=== PATIENT | female | born 2000 | race Caucasian/White ===

== ENCOUNTER 2018-07-01 02:13 | Emergency (ER) | payer SELFPAY ==
[2018-07-01] MEDS ORDERED: Metoclopramide IV* 5 MG/ML 2 ML VIAL IV SLOW PU ONE (02:14)
[2018-07-01] MEDS ORDERED: NS 0.9% 1000 ML* 1,000 ML IV ONE (02:14)
--- NOTE | 2018-07-01 02:27 | ED ---
Substance Abuse/Use - HPI Summary HPI Summary: Pt is a 18 y/o female BIBA who presents to the ED c/o alcohol intoxication. She drank beer tonight, which she claims she doesnt do very often. She was walking on [address] with her friends and was too intoxicated to walk. Pt vomited several times and had slightly low BP, as per EMS. Pt is a level 5 caveat due to her AMS, therefore a proper history was not able to be obtained. - History Of Current Complaint Stated Complaint: ETOH Time Seen by Provider: 07/01/18 02:14 Hx Obtained From: Patient, EMS Hx From Patient Unobtainable Due To: Altered Mental Status Ingestion History: Type/Name Of Drug - Alcohol Character: Lethargic Associated Signs And Symptoms: Nausea, Vomiting - Allergies/Home Medications Allergies/Adverse Reactions: Allergies Allergy/AdvReac Type Severity Reaction Status Date / Time No Known Allergies Allergy Verified 07/01/18 02:23 Home Medications: Home Medications NK [No Home Medications Reported] 07/01/18 [History Confirmed 07/01/18] PMH/Surg Hx/FS Hx/Imm Hx Infectious Disease History: No Infectious Disease History: Denies: Traveled Outside the [place] in Last 30 Days - Family History Known Family History: Positive: Unknown - Level 5 caveat due to AMS - Social History Alcohol Use: Occasionally Hx Substance Use: No Substance Use Type: Reports: None Hx Tobacco Use: No Smoking Status (MU): Never Smoked Tobacco Review of Systems Positive: Vomiting, Nausea Positive: Other - Intoxicated All Other Systems Reviewed And Are Negative: Yes Physical Exam - Summary Physical Exam Summary: VITAL SIGNS: Reviewed. GENERAL: Patient is a well-developed and nourished FEMALE who is vomiting. Patient is not in any acute respiratory distress. HEAD AND FACE: No signs of trauma. No ecchymosis, hematomas or skull depressions. No sinus tenderness. EYES: PERRLA, EOMI x 2, No injected conjunctiva, no nystagmus. EARS: Hearing grossly intact. Ear canals and tympanic membranes are within normal limits. MOUTH: Oropharynx within normal limits. NECK: Supple, trachea is midline, no adenopathy, no JVD, no carotid bruit, no c- spine tenderness, neck with full ROM. CHEST: Symmetric, no tenderness at palpation LUNGS: Clear to auscultation bilaterally. No wheezing or crackles. CVS: Regular rate and rhythm, S1 and S2 present, no murmurs or gallops appreciated. ABDOMEN: Soft, non-tender. No signs of distention. No rebound no guarding, and no masses palpated. Bowel sounds are normal. EXTREMITIES: FROM in all major joints, no edema, no cyanosis or clubbing. NEURO: Alert and oriented x 3. No acute neurological deficits. Speech is normal and follows commands. Slowly responds to questions. SKIN: Dry and warm Triage Information Reviewed: Yes Vital Signs On Initial Exam: Initial Vitals Temp Pulse Resp BP Pulse Ox 97.9 F 80 16 111/76 100 07/01/18 02:21 07/01/18 02:21 07/01/18 02:21 07/01/18 02:21 07/01/18 02:21 Vital Signs Reviewed: Yes Diagnostics - Vital Signs Vital Signs Temp Pulse Resp BP Pulse Ox 07/01/18 02:21 97.9 F 80 16 111/76 100 - Laboratory Lab Statement: Any lab studies that have been ordered have been reviewed, and results considered in the medical decision making process. Course/Dx - Course Course Of Treatment: Pt is a 18 y/o female BIBA who presents to the ED c/o alcohol intoxication. She drank beer tonight, which she claims she doesnt do very often. She was walking on [address] with her friends and was too intoxicated to walk. Pt vomited several times and had slightly low BP, as per EMS. Pt is a level 5 caveat due to her AMS, therefore a proper history was not able to be obtained. A physical exam revealed the pt slowly responds to questions, and vomiting. Final dx is alcohol intoxication. Pt is discharged home. - Diagnoses Provider Diagnoses: Alcohol intoxication Discharge - Sign-Out/Discharge Documenting (check all that apply): Patient Departure - Discharge - Discharge Plan Condition: Stable Disposition: HOME Patient Education Materials: Alcohol Intoxication (ED) Referrals: [facility] [Outside] (2-3 days) Additional Instructions: RETURN TO THE EMERGENCY DEPARTMENT FOR CHANGING OR WORSENING SYMPTOMS. FOLLOW UP WITH PCP IN 1-2 DAYS. - Attestation Statements Document Initiated by Scribe: Yes Documenting Scribe: Ashley Sherman Provider For Whom Scribe is Documenting (Include Credential): Macie Berrios MD Scribe Attestation: Ashley Dickens, scribed for Macie Berrios MD on 07/01/18 at 0545.
[2018-07-01 06:17] VITALS: BP 109/77
== END 2018-07-01 06:17 | disposition home or self-care (01) ==
LOC: ED 02:13
DX: F10.129 Alcohol abuse with intoxication, unspecified (principal)
CPT/HCPCS: 96361; 96374; 99282; J2765